=== PATIENT | female | born 1965 | race Caucasian/White ===

== ENCOUNTER 2016-10-13 14:59 | Emergency (ER) | payer OTHER ==
[~2016-10-13] VITALS: Ht 165.1 cm; Wt 95.0 kg
[2016-10-13 15:04] VITALS: BP 143/85; PULSE 59; RESP 10; O2SAT 100
--- NOTE | 2016-10-13 17:08 | ED.REPORT ---
HPI-Eye Problem Date of Service Oct 13, 2016 ED Provider: Margaret Rossi MD 51 y/o female with a hx of HTN and thyroid disease presents to the ED complaining of sudden change in vision that lasted 30 seconds about 3 hours ago. The pt was sitting on her desk when her left eye went completely dark followed by blurry vision only in the left eye. Her sx resolved altogether but the pt was concerned so she went to the urgent care. She was sent to the ED for possible stroke, reportedly there was conversation with ophthalmology who reported that she would not have a retinal detachment and have her vision return. She denies eye pain. She reports a normal vision test at both the urgent care and in the ED. Nursing Notes Stated Complaint: PROBLEMS WITH LEFT EYE Chief Complaint: Eye Nursing Notes Reviewed: Yes Allergies: Coded Allergies: No Known Allergies (Unverified Allergy, Unknown, 10/13/16) General Time Seen by MD: 15:11 Chief Complaint Left eye affected Hx Obtained From: Patient Arrived By: Walk-in Sudden in Onset?: Yes Onset Occurred: 1 - 4 hours ago Symptom Duration: 1 - 15 minutes (30 seconds) Progression Since Onset: Resolved Context: Occurred at: Home Location: : Eye left Severity: Current: No pain currently Severity: Maximum: No pain Associated with: Denies: Nausea, Photophobia Recent Healthcare: No recent doctor visit Similar Sx Previous: No Risk-Eye Problem Eye Injury Risk Stratification No Diabetes mellitus, No Glaucoma Past Medical History Past Medical History Reports: Hypertension Reports: Thyroid disease Past Surgical History none reported Smoking History Former Smoker Social History Alcohol Use: Denies alcohol use Drug Use: Denies drug use Ambulatory Status Independent Review of Systems Neurologic: Reports: Vision change (initially dark for a few seconds followed by blurry vision for a few seconds) Complete sys rev & neg: except as marked. Physical Exam Initial Vital Signs Vital Signs (First) Date Time Temp Pulse Resp B/P Pulse Ox O2 Delivery O2 Flow Rate FiO2 10/13/16 15:04 36.7 59 10 143/85 100 Room Air Initial VS: Reviewed Neck: Supple, Non-tender, Full range of motion Respiratory: Breath sounds normal, Clear to auscultation, No respiratory distress Abdomen / GI: Soft, Non-tender Extremities: Vascular intact, Neuro intact, No swelling, No tenderness Skin: Warm, Dry, No cyanosis Neurologic: Alert, Oriented, Nonfocal Head / Eyes: Atraumatic, Normocephalic, PERRL, EOMI, No periorbital swelling, No photophobia, Conjunctiva NL, Fundi NL (unable to fully visualize, visualized retina appears normal ) General/Constitutional: Awake, Alert, No acute distress, Cooperative Neurologic: Oriented X3, Speech NL, No motor deficits, No sensory deficits, CN II - XII intact, Gait NL Cardiovascular: Regular rhythm, No rubs Heart Rate / Rhythm: Positive: Bradycardia Heart Sounds / Murmur: Positive: Murmur present... (III/; heard in aortic area) Abdomen: Soft, Non-tender, No guarding, No rebound Interpretation & Diagnostics Lab Results Interpretation Result Diagram: 10/13/16 1750 10/13/16 1750 Test 10/13/16 17:50 White Blood Count 6.1th/mm3 (3.8-10.1) Red Blood Count 4.49mil/mm3 (3.90-5.20) Hemoglobin 14.2g/dL (12.0-15.6) Hematocrit 42.1% (35.0-46.0) Mean Corpuscular Volume 93.8fL (81-100) Mean Corpuscular Hemoglobin 31.6pg (27.0-35.0) Mean Corpuscular Hemoglobin Concent 33.7% (32.0-37.0) Red Cell Distribution Width 12.6% (12.3-15.4) Platelet Count 188bil/L (150-400) Sodium Level 140mEq/L (134-144) Potassium Level 4.2mEq/L (3.5-5.2) Chloride Level 103mEq/L (97-108) Carbon Dioxide Level 23mmol/L (18-29) Blood Urea Nitrogen 15mg/dL (6-24) Creatinine 0.69mg/dL (0.57-1.00) Estimat Glomerular Filtration Rate 127mL/min (>59) Glucose Level 94mg/dL (60-99) Calcium Level 8.8mg/dL (8.5-10.1) Total Bilirubin 0.3mg/dL (0.0-1.2) Aspartate Amino Transf (AST/SGOT) 20U/L (0-50) Alanine Aminotransferase (ALT/SGPT) 20U/L (0-32) Alkaline Phosphatase 47U/L (25-150) Total Protein 6.6g/dL (6.4-8.4) Albumin 4.0g/dL (3.4-5.0) ECG Interpretation ECG Interpretation: Sinus bradycardia. Rate 52. Low voltage, precordial leads Anteroseptal infarct, old. Time: 17:21 Interpreted by: ED physician Re-Eval/Medical Decision Med Decision/Clinical Course 51-year-old female presents to the emergency department transient monocular vision loss this morning. Differential diagnosis includes retinal artery occlusion. Do not expect optic neuritis given the patient has no pain. Do not suspect retinal detachment given her visual change completely resolved, however cannot completely rule out. Patient does have a red reflex, so vitreous hemorrhage less likely although cannot entirely rule out. Patient basic labs and EKG, MRI stroke protocol was ordered for evaluation of her arteries as well as brain. Re-Evaluation/Progress : Time of Eval: 17:28 Re-Evaluation/Progress Note: Rechecked pt. Discussed the plan to do an MRI. She understands. All questions answered. Counseled Regarding: Diagnosis, Lab results, Need for follow-up, When/why to return to ED Discharge & Departure Shift Change Sign-Out Patient Care Transferred: Yes Discussed Complaint(s): Yes Laboratory Evaluation: Ordered, not yet done Imaging Studies: Ordered, not yet done Primary Impression: Transient monocular blindness Disposition: Home Discharge Condition All VS Reviewed: Yes Referrals: Noe Beebe MD (PCP) Care Transferred to: Dr. Mckeon, pending MRI, EKG Care Transferred at: 18:00 Scribe Attestation Portions of this note were transcribed by Chuy Diallo. I,, personally performed the history, physical exam and medical decision-making;I reviewed and confirmed the accuracy of the information in the transcribed note. Signed by Halima Mejia. 10/13/16 17:43 copies to: Noe Beebe MD, Sarah C MD Oct 13, 2016 17:08 Chuy Diallo Oct 13, 2016 17:27
[2016-10-13 18:03] LABS: Mean Corpuscular Hemoglobin 31.6 pg (27.0-35.0); Mean Corpuscular Volume 93.8 fL (81-100)
--- NOTE | 2016-10-13 20:15 | DRSVH ---
PROCEDURE: MRI STROKE PROTOCOL ([id number]) Pre- and post-contrast brain MRI, non-contrast brain MR angiogram, pre- and postcontrast neck MR emely ogram INDICATIONS: left eye vision loss TECHNIQUE: Brain: Noncontrast axial T1 spin echo, axial T2 fast spin echo, sagittal and axial FLAIR, coronal T2 fast spin echo, axial gradient echo, axial diffusion and ADC through the brain. After the administr ation of contrast, axial 3D VIBE of the cranial vasculature and brain. Brain MRA: Non-contrast 3-D time of flight MR angiogram, with multiple cftttbv-fxkqhwjdc-exjvyvnqto (MIP) reformats performed. Neck MRA: Axial and sagittal TruFISP through the neck. Coronal dynamic MR angiogram during administ ration of contrast in the arterial and venous phases, with 3-dimenstional sjsyqem-opniepzcm-nkcogltkt n (MIP) reformats constructed from subtraction images. COMPARISON: [facility] [place], MR, MR KNEE RT WO CON, 08/12/2016, 14:25. [facility], MR, MR KNEE RT WO CON, 01/08/2016, 15:03. FINDINGS: Image quality: Excellent. BRAIN: CSF spaces: Ventricles are normal in size and shape. Basal cisterns are patent. No extra-axial flu id collections. Brain: No intracranial bleeds or mass effects. Addison-white matter interface is normal. Diffusion we ighted images show no acute ischemic insults. Brainstem appears normal. Normal intravascular flow v oids are present. No abnormal intracranial enhancement. Skull and face: Calvarial marrow signal is normal. Orbits appear normal. Sinuses: Sinuses and mastoids are clear. BRAIN MR ANGIOGRAM: Anterior circulation: Intracranial internal carotid arteries are normal in size and enhancement. Th e flow within the paired anterior cerebral arteries is normal and symmetric. The flow within the mid dle cerebral arteries is normal and symmetric. The anterior communicating artery is seen. No stenos es, occlusions, or aneurysms. Posterior circulation: The visualized portions of the vertebral arteries demonstrate normal caliber, and join to form a normal appearing basilar artery. The flow within the posterior cerebral arteries is normal and symmetric. A right posterior commuting artery is identified. No left posterior commun icating artery is identified. No stenoses, occlusions, or aneurysms. NECK MR ANGIOGRAM: Carotids: Great vessels demonstrate a conventional anatomy as they arise from the aortic arch. The origins of the common carotid arteries appear patent. The calibers and courses of both common caroti d arteries are normal. The bifurcation regions appear normal bilaterally. The internal carotid jose m christine demonstrate normal course and caliber. Posterior circulation: The origins of the vertebral arteries appear patent. More superior portions of both vertebral arteries demonstrate normal course and caliber, and join to form a normal appearing basilar artery. Miscellaneous: Subclavian arteries appear patent. Pre-contrast images through the neck show no soft tissue abnormalities. IMPRESSION: BRAIN MRI: No evidence of intracranial pathology. BRAIN MR ANGIOGRAM: Normal intracranial arterial structures. NECK MR ANGIOGRAM: Normal arterial structures in the neck. The estimate of stenosis included in the report of the imaging study was calculated using the NASCET method Dictated by: Lalo Joseph M.D. on 10/13/2016 at 20:05 Approved by: Lalo Joseph M.D. on 10/13/2016 at 20:12
[2016-10-13 20:46] VITALS: BP 104/68; PULSE 62; RESP 16; O2SAT 98
[2016-10-13 21:29] VITALS: BP 104/68; PULSE 62; RESP 16; O2SAT 98
== END 2016-10-13 21:30 | disposition home or self-care (01) ==
LOC: SED 14:59
DX: H53.122 Transient visual loss, left eye (principal); I10 Essential (primary) hypertension; E07.9 Disorder of thyroid, unspecified; Z87.891 Personal history of nicotine dependence
CPT/HCPCS: 36415; 70549; 70553; 80053; 85027; 93005; 96374; 99285; A9585; J3360